=== PATIENT | male | born 1990 | race Hispanic/Latino ===

== ENCOUNTER 2017-07-21 12:35 | Emergency (ER) | payer SELFPAY ==
[~2017-07-21] VITALS: Ht 175.3 cm; Wt 136.8 kg
[~2017-07-21 12:35] MED LIST: BENTYL20 MG OR; FLEXERIL PO; NEXIUM40 M1 OR
[2017-07-21] MEDS ORDERED: VISTARIL 50MG C50 M1 PO (13:08)
[2017-07-21 13:10] VITALS: BP 127/77
== END 2017-07-21 13:19 | disposition home or self-care (01) | DRG 881 ==
LOC: ED 12:35
DX: F32.9 Major depressive disorder, single episode, unspecified (principal); F41.9 Anxiety disorder, unspecified

== ENCOUNTER 2017-12-30 13:41 | Emergency (ER) | payer SELFPAY ==
[~2017-12-30] VITALS: Ht 175.3 cm; Wt 129.0 kg
[~2017-12-30 13:41] MED LIST changes: +VISTARIL 50MG C50 M1 PO
[2017-12-30 14:24] LABS: HEMOGLOBIN 15.1 g/dl (14.0-18.0); IMMATURE GRANULOCYTES 0.3 % (0.0-5.0); MEAN CORPUSCULAR HGB 28.9 pG CALC (26.0-32.0); MEAN CORPUSCULAR HGB CONC 32.8 g/L CALC (32.0-36.0); NEUT# 3.04 thou/uL (1.82-7.42); RED BLOOD COUNT 5.23 mill/uL (4.70-6.10); RED CELL DISTRI WIDTH 13.6 % (11.5-15.5)
[2017-12-30 14:35] LABS: ALBUMIN 4.5 g/dL (3.2-5.0); ALKALINE PHOSPHATASE 64 u/l (38-126); AMYLASE 58 u/l (30-110); ANION GAP 13 (6-22 (CALC)); BILIRUBIN, TOTAL 0.6 mg/dL (0.0-1.4); BUN 14 mg/dL (9-20); BUN/CREATININE RATIO 17 (12-20 (CALC)); CARBON DIOXIDE 25 mmol/l (22-30); CHLORIDE 107 mmol/l (95-108); CREATININE 0.8 mg/dL (0.7-1.3); GFR > 60 ML/MIN (>=60 (CALC)); GFR FOR AFR.AMER. > 60 ML/MIN (>=60 (CALC)); LIPASE 60 u/l (23-300); POTASSIUM 4.3 mmol/l (3.5-5.1); SGOT/AST 38 u/l (17-59); SODIUM 141 mmol/l (137-146); TOTAL PROTEIN 7.4 g/dL (6.3-8.2)
[2017-12-30 14:47] LABS: MYOGLOBIN 63 ng/mL (0 - 121)
[2017-12-30] MEDS ORDERED: EFFEXOR37.5 MG PO (16:59)
[2017-12-30 17:25] VITALS: BP 100/57
== END 2017-12-30 17:34 | disposition home or self-care (01) | DRG 313 ==
LOC: ED 13:41
DX: R07.9 Chest pain, unspecified (principal); F41.9 Anxiety disorder, unspecified; R53.83 Other fatigue; R42 Dizziness and giddiness
CPT/HCPCS: Q9967

== ENCOUNTER 2018-05-30 17:21 | Emergency (ER) | payer SELFPAY ==
[~2018-05-30] VITALS: Ht 175.3 cm; Wt 120.0 kg
[~2018-05-30 17:21] MED LIST changes: +EFFEXOR37.5 MG PO
[2018-05-30] MEDS ORDERED: AUGMENTIN875TAB PO (18:00)
[2018-05-30] MEDS ORDERED: OFLOXACIN0.3 % OU (18:00)
[2018-05-30] MEDS ORDERED: ZOFRAN ODT4 MG PO (18:00)
[2018-05-30 18:22] VITALS: BP 117/70
== END 2018-05-30 18:22 | disposition home or self-care (01) | DRG 153 ==
LOC: ED 17:21
DX: J02.0 Streptococcal pharyngitis (principal); H10.33 Unspecified acute conjunctivitis, bilateral; R05 Cough

== ENCOUNTER 2018-06-05 18:43 | Emergency (ER) | payer SELFPAY ==
[~2018-06-05] VITALS: Ht 175.3 cm; Wt 129.5 kg
[~2018-06-05 18:43] MED LIST changes: +AUGMENTIN875TAB PO; +OFLOXACIN0.3 % OU; +ZOFRAN ODT4 MG PO
[2018-06-05 19:41] LABS: HEMATOCRIT 44.3 % (39.0-50.0); HEMOGLOBIN 14.2 g/dl (14.0-18.0); IMMATURE GRANULOCYTES 0.7 % (0.0-5.0); MEAN CELL VOLUME 88.1 fL CALC (80.0-100.0); MEAN CORPUSCULAR HGB 28.2 pG CALC (26.0-32.0); MEAN CORPUSCULAR HGB CONC 32.1 g/L CALC (32.0-36.0); RED BLOOD COUNT 5.03 mill/uL (4.70-6.10); RED CELL DISTRI WIDTH 13.5 % (11.5-15.5)
[2018-06-05] MEDS ORDERED: ROBITUSSIN AC10 ML PO (20:14)
[2018-06-05] MEDS ORDERED: CHLORPHEN SR12 MG PO (20:14)
[2018-06-05 20:30] VITALS: BP 118/77
== END 2018-06-05 20:30 | disposition home or self-care (01) | DRG 153 ==
LOC: ED 18:43
PROVIDERS: Family Medicine
DX: J06.9 Acute upper respiratory infection, unspecified (principal); J20.8 Acute bronchitis due to other specified organisms; R50.9 Fever, unspecified; R05 Cough; R09.89 Other specified symptoms and signs involving the circulatory and respiratory systems; R11.0 Nausea